=== PATIENT | female | born 1985 | race Caucasian/White ===

== ENCOUNTER 2016-03-04 12:41 | Emergency (ER) | payer MEDICARE ==
[~2016-03-04] VITALS: Ht 162.5 cm; Wt 106.6 kg
[~2016-03-04 12:41] MED LIST: AMOXICILLIN500 M2 PO; AVPAK AZITHROM250 M1 PO; OMNICEF300 MG PO; PREDNISONE20 M1 PO; PREDNISONE20 MG PO; TESSALON PERLE100 M1 PO; ZITHROMAX Z PA250 MG PO; ZYRTEC10 MG PO
[2016-03-04 13:29] LABS: BASO # 0.1 10*3/uL (0.0-0.1); BASO % 0.5 % (0.0-1.0); EOS # 0.2 10*3/uL (0.0-0.4); EOS % 1.8 % (1.0-4.0); HEMATOCRIT 40.4 % (37.0-47.0); HEMOGLOBIN 13.4 g/dl (12.0-16.0); LYMPH # 2.4 10*3/uL (1.3-4.4); LYMPH % 25.7 % (27.0-41.0); MEAN CELL VOLUME 86.3 fl (81.0-99.0); MEAN CORPUSCULAR HGB 28.6 pg (27.0-31.0); MEAN CORPUSCULAR HGB CONC 33.2 g/dl (33.0-37.0); MEAN PLATELET VOLUME 9.8 fl (9.6-12.3); MONO # 0.8 10*3/uL (0.1-1.0); MONO % 8.8 % (3.0-9.0); PLATELET COUNT AUTOMATED 334 10*3/uL (130-400); RED BLOOD COUNT 4.68 10*6/uL (4.10-5.10); RED CELL DISTRI WIDTH 13.4 % (0-14.5); WHITE BLOOD COUNT 9.5 10*3/uL (4.8-10.8)
[2016-03-04 13:45] LABS: ALBUMIN 3.6 gm/dl (3.1-4.5); ALKALINE PHOSPHATASE 84 U/L (45-117); BILIRUBIN, TOTAL 0.5 mg/dl (0.2-1.0); BUN 10 mg/dl (7-24); CARBON DIOXIDE 26 mmol/L (21-32); CHLORIDE 105 mmol/L (98-107); EST GLOM FILT AFRICAN AMERICAN > 60 ml/min; GLUCOSE 95 mg/dL (65-99); POTASSIUM 3.9 mmol/L (3.5-5.1); SGOT/AST 9 IU/L (3-35); SGPT/ALT 18 U/L (12-78); SODIUM 142 mmol/L (136-145); TOTAL PROTEIN 8.1 gm/dL (6.4-8.2)
[2016-03-04] MEDS ORDERED: ZOFRAN ODT4 MG SL (13:58)
== END 2016-03-04 15:11 | disposition home or self-care (01) ==
LOC: ED 12:41
PROVIDERS: Registered Nurse
DX: K52.9 Noninfective gastroenteritis and colitis, unspecified (principal)

== ENCOUNTER 2017-09-18 21:00 | Emergency (ER) | payer MEDICARE ==
[~2017-09-18] VITALS: Ht 160 cm; Wt 113.4 kg
[~2017-09-18 21:00] MED LIST changes: +ZOFRAN ODT4 MG SL
[2017-09-18] MEDS ORDERED: ANAPROX DS550 MG PO (22:31)
== END 2017-09-18 22:45 | disposition home or self-care (01) ==
LOC: ED 21:00
DX: M25.511 Pain in right shoulder (principal)

== ENCOUNTER → 2019-06-12 | Outpatient (CLI) | payer MEDICARE ==
[~2019-06-12] MED LIST changes: +ANAPROX DS550 MG PO
== END | disposition home or self-care (01) ==
LOC: US 11:17
DX: Z34.81 Encounter for supervision of other normal pregnancy, first trimester (principal); Z3A.01 Less than 8 weeks gestation of pregnancy

== ENCOUNTER → 2019-08-19 | Outpatient (CLI) | payer MEDICARE, OTHER | END | disposition home or self-care (01) | LOC: US 15:59 | DX: Z34.82 Encounter for supervision of other normal pregnancy, second trimester (principal); Z3A.15 15 weeks gestation of pregnancy ==

== ENCOUNTER → 2019-09-02 | Outpatient (CLI) | payer MEDICARE, OTHER | END | disposition home or self-care (01) | LOC: LAB 07:45 | DX: O99.810 Abnormal glucose complicating pregnancy (principal); Z3A.16 16 weeks gestation of pregnancy; Z13.1 Encounter for screening for diabetes mellitus ==

== ENCOUNTER → 2019-10-09 | Outpatient (CLI) | payer MEDICARE, OTHER | END | disposition home or self-care (01) | LOC: D 10:35 | PROVIDERS: ATTEND Nurse Practitioner Women's Health | DX: O24.410 Gestational diabetes mellitus in pregnancy, diet controlled (principal); Z3A.23 23 weeks gestation of pregnancy ==

== ENCOUNTER → 2020-06-24 | Outpatient (CLI) | payer MEDICARE, OTHER ==
[~2020-06-24] MED LIST changes: +Motrin,Rufen800 MG PO; +VICO75300 PO
== END | disposition home or self-care (01) ==
LOC: COVID19 11:34
PROVIDERS: ATTEND Obstetrics & Gynecology
DX: Z01.812 Encounter for preprocedural laboratory examination (principal); Z20.822 Contact with and (suspected) exposure to COVID-19

== ENCOUNTER → 2020-06-24 | Outpatient (CLI) | payer MEDICARE, OTHER ==
[~2020-06-24] MED LIST changes: -Motrin,Rufen800 MG PO; -VICO75300 PO
== END | disposition home or self-care (01) ==
LOC: LAB 10:06
PROVIDERS: ATTEND Obstetrics & Gynecology
DX: Z30.2 Encounter for sterilization (principal)

== ENCOUNTER → 2020-06-28 | Day surgery (SDC) | payer MEDICARE, OTHER ==
[~2020-06-28] VITALS: Ht 162.5 cm; Wt 115.7 kg
[~2020-06-28] MED LIST changes: +Motrin,Rufen800 MG PO; +VICO75300 PO
[2020-06-28 06:50] VITALS: BP 178/106
[2020-06-28 08:56] VITALS: BP 158/89
[2020-06-28 09:11] VITALS: BP 147/81
[2020-06-28 09:26] VITALS: BP 148/82
[2020-06-28 09:41] VITALS: BP 141/72
[2020-06-28 09:56] VITALS: BP 142/80
== END | disposition home or self-care (01) ==
LOC: SDC 06-10 13:15
PROVIDERS: ATTEND Obstetrics & Gynecology
DX: Z30.2 Encounter for sterilization (principal); N80.9 Endometriosis, unspecified; N70.11 Chronic salpingitis; I10 Essential (primary) hypertension; E78.5 Hyperlipidemia, unspecified; E66.9 Obesity, unspecified

== ENCOUNTER 2021-12-06 21:30 | Emergency (ER) | payer MEDICARE, OTHER ==
[~2021-12-06] VITALS: Ht 162.5 cm; Wt 117.9 kg
== END 2021-12-06 22:45 | disposition home or self-care (01) ==
LOC: ED 21:30
DX: S06.0X0A Concussion without loss of consciousness, initial encounter (principal); S00.83XA Contusion of other part of head, initial encounter; H57.11 Ocular pain, right eye; W22.8XXA Striking against or struck by other objects, initial encounter; Y93.89 Activity, other specified; Y92.69 Other specified industrial and construction area as the place of occurrence of the external cause; Y99.8 Other external cause status